=== PATIENT | male | born 1990 | race Caucasian/White ===

== ENCOUNTER 2016-11-27 16:21 | Inpatient (IN) | payer OTHER ==
[~2016-11-27] VITALS: Ht 165.1 cm; Wt 71.7 kg
[2016-11-27] MEDS ORDERED: diphenhydrAMINE 50 MG CAPSULE PO PRN (23:15)
[2016-11-27] MEDS ORDERED: MAGNESIUM HYDROXIDE 30 ML LIQUID UDC PO PRN (23:15)
[2016-11-27] MEDS ORDERED: BUPRENORPHINE HCL 2 MG TAB.SUBL SL PRN (23:15)
[2016-11-27] MEDS ORDERED: HYDROXYZINE PAMOATE 25 MG CAPSULE PO PRN (23:15)
[2016-11-27] MEDS ORDERED: METHOCARBAMOL 750 MG TABLET PO PRN (23:15)
[2016-11-27] MEDS ORDERED: MAG HYDROX/AL HYDROX/SIMETH 30 ML LIQUID UDC PO PRN (23:15)
[2016-11-27] MEDS ORDERED: IBUPROFEN 600 MG TABLET PO PRN (23:15)
[2016-11-27] MEDS ORDERED: ACETAMINOPHEN 325 MG TABLET PO PRN (23:15)
[2016-11-27] MEDS ORDERED: LOPERAMIDE HCL 2 MG CAPSULE PO PRN ×2 (23:15)
[2016-11-27] MEDS ORDERED: ONDANSETRON 4 MG/2 ML VIAL IM PRN (23:15)
[2016-11-27] MEDS ORDERED: ONDANSETRON ODT 4 MG TAB.RAPDIS SL PRN (23:15)
[2016-11-27] MEDS ORDERED: CLONIDINE HCL 0.1 MG TABLET PO PRN (23:15)
[2016-11-27] MEDS ORDERED: MIRALAX 17 GM POWD.PACK PO PRN (23:15)
[2016-11-27] MEDS ORDERED: DICYCLOMINE HCL 20 MG TABLET PO PRN (23:15)
[2016-11-28] VITALS: BP 128/91
--- NOTE | 2016-11-28 00:10 | NUR ---
ADMISSION Patient is a 26-year old, male, admitted and escorted by [facility] at 2355 to unit. Patient lives in a house with and kids in [place]. Skin check done, no open skin noted. No edema noted. Pt is ambulatory with steady gait. Pt stands 5'5" and weighs 158 pounds per standing scale. Vital signs are as follows: BP-128/91, T-98.1, P-77, RR-18 and SPO2 on RA=98%. Patient is AAOx4 and with no anxiety noted at this time. Lung sounds clear bilaterally upon auscultation. No cough noted and bowel sounds are present on all quadrants. PERRLA and pupils are 2 mm upon visual check. Pt reports No Known Allergies, on Regular Kosher Diet and is Full Code. Pt denies any seizure history. Per pt, withdrawal symptoms are hot flushes, sweats, chills, goosebumps, fatigue and insomnia. Substance history as follows: 1) Roxycodone: Per pt, started at age 15 and for the past 6 weeks was using 100 to 150 mgs daily via snorting. Last use was 11/27/2016 at 1800, 150 mg total for the past 24 hours. 2) Cannabis: Per patient, for the past 1 year, he smoked only for 5 times and the 4 times, he smoked for the past 3 weeks. Last smoked was 11/25/2046 and per pt he only smoked 2 hits. Patient verbalized the he does not drink alcohol. Patient reported no medical history. Per patient, Psychologist is Kenn Panchal and PCP is Dr. Xavier Martins. No Psychiatrist. Home medications mentioned were reconciled. No treatment history. Per patient, this is his first time in detox. Patient reports smoking cigarettes, specifically [place] lights, about 1 pack daily. Oriented patient to room and instructed with the use of the call light, placed within reach. Fall, universal, seizure and safety precautions implemented. Kept patient warm, dry and comfortable. No c/o significant pain at this time All needs met. Information relayed to Dr. Craig. Patient refused Pneumonia vaccine despite explanation of risks and benefits. Out of season for Flu vaccine. COWS=1. Will continue to monitor.
--- NOTE | 2016-11-28 00:30 | NUR ---
RN note Adderall Home Med Pt informed taking Adderall 30 mg PO BID "only when I needs to focus at work." Pt denies being diagnosed with ADHD.
[2016-11-28 01:07] LABS: *AMPHETAMINE, URINE POSITIVE (NEGATIVE); *BARBITURATE, URINE NEGATIVE (NEGATIVE); *CANNABINOID, URINE POSITIVE (NEGATIVE); *COCCAINE, URINE NEGATIVE (NEGATIVE); *OPIATE, URINE POSITIVE (NEGATIVE); *PHENCYCLIDINE SCREEN,URINE NEGATIVE (NEGATIVE)
[2016-11-28 01:59] LABS: ETHANOL < 3 MG/DL (0-0)
[2016-11-28 02:02] LABS: BASOPHILS % (AUTO) 0.5 % (0.0-2.0); EOSINOPHILS # (AUTO) 0.2 K/uL (0.0-0.7); EOSINOPHILS % (AUTO) 2.4 % (0.0-7.0); HEMATOCRIT 41.1 % (40.0-50.0); HEMOGLOBIN 14.5 g/dL (14.0-18.0); LYMPHOCYTES # (AUTO) 3.5 K/uL (0.8-4.8); LYMPHOCYTES % (AUTO) 44.8 % (20.5-51.5); MEAN CORPUSCULAR HEMOGLOBIN 29.8 uug (27.0-31.0); MEAN CORPUSCULAR HGB CONC 35 g/dL (32.0-37.0); MEAN CORPUSCULAR VOLUME 84.3 fL (82.0-92.0); MONOCYTES # (AUTO) 0.5 K/uL (0.1-1.30); NEUTROPHILS # (AUTO) 3.6 K/uL (1.8-8.9); NEUTROPHILS % (AUTO) 46.3 % (38.5-71.5); PLATELET COUNT (AUTO) 222 K/uL (150-450); RED BLOOD CELL COUNT(AUTO) 4.88 MIL/uL (4.70-6.10); RED CELL DISTRIBUTION WIDTH 11.4 % (11.5-14.5); WHITE BLOOD COUNT (AUTO) 7.8 K/uL (4.0-11.2)
[2016-11-28 02:04] LABS: ALANINE AMINOTRANSFERASE 29 U/L (16-63); ALBUMIN 3.6 g/dL (3.4-5.0); ALKALINE PHOSPHATASE 77 U/L (50-136); ASPARTATE AMINOTRANSFERASE 18 U/L (15-37); BILIRUBIN,TOTAL 0.4 mg/dL (0.2-1.0); CALCIUM 8.7 mg/dL (8.5-10.1); CARBON DIOXIDE 29 mmol/L (21-32); CHLORIDE 103 mmol/L (98-107); GFR 60 mL/min (>60); GLUCOSE 124 mg/dL (74-106); POTASSIUM 3.3 mmol/L (3.5-5.1); SODIUM SERUM 142 mmol/L (136-145); TOTAL PROTEIN, SERUM 6.8 g/dL (6.4-8.2); UREA NITROGEN, BLOOD 12 mg/dL (7-18)
[2016-11-28 02:11] LABS: CREATININE 1.4 mg/dL (0.6-1.3)
[2016-11-28 02:13] LABS: HIV-1 p24 ANTIGEN NON REACTIVE (NONREACTIVE); HIV-1/2 ANTIBODY NON REACTIVE (NONREACTIVE)
[2016-11-28 02:15] LABS: THYROID STIMULATING HORMONE 2.836 mIU/mL (0.358-3.740)
[2016-11-28] MEDS ORDERED: AMPH30TA3 PO (02:19)
[2016-11-28 04:00] VITALS: BP 123/82
--- NOTE | 2016-11-28 07:10 | NUR ---
Start of Shift Report from the night nurse: Pt is 24 y/o male here for Opiate dependence r/t Heroin 1g IV/d x 10 days; 4 day Subutex taper ordered. Pt is a full code, regular diet, allergic to sulfa, fall precautions ordered. HHx: No seizures, smoker, multiple relapses. V/S stable. Skin is intact. No new labs, recommendations or endorsements from the night nurse. Last COWS 3. Pt is in room asleep. Will cont. to monitor the pt. Addendum: 11/28/16 at 1241 by IGOR SALAZAR RN WRONG PATIENT
--- NOTE | 2016-11-28 07:25 | NUR ---
End of Shift Patient is a 26-year old, male, admitted for Opiate Dependence. No medical history and no history of seizure per pt. Pt reports No Known Allergies, on Regular Kosher Diet and is Full Code. Per pt, he uses Roxycodone via snorting 100 to 150 mg daily for the past 6 weeks prior to admission. Patient is AAOx4 and with no anxiety noted at this time. Pt is ambulatory with steady gait and with no skin issues. No apparent withdrawal symptoms noted at this time. Fall, universal, seizure and safety prec in place. Call light within reach. Kept pt warm, dry and comfortable. Last COWS=1, slept for 4 hours. Endorsed to AM shift nurse for continuity of care.
[2016-11-28 08:00] VITALS: BP 107/77
[2016-11-28] MEDS ORDERED: TUBERCULIN,PURIF.PROT.DERIV. 5 TU/0.1 ML TEST ID ONE (09:00)
[2016-11-28] MEDS ORDERED: POTASSIUM CHLORIDE 20 MEQ TAB.PRT.SR PO ONE (09:00)
[2016-11-28] MEDS: MULTIVITAMINS,THERAPEUTIC TABLET PO SCH (10:46)
--- NOTE | 2016-11-28 11:30 | NUR ---
New Orders & PPD Test New orders for 11/29/16: Chem 10, Hgb A1C, and to start 4 day Subutex taper. Late 0900H medications and PPD test given late per pt's request. PPD test done on Left FA.
[2016-11-28 12:00] VITALS: BP 134/89
--- NOTE | 2016-11-28 12:41 | NUR ---
Start of Shift Report from the night nurse: Pt is a 26 y/o male here for Opiate dependence r/t Roxicodone of 100-150mg/d and Cannabis r/t smoked 5 time in the last 3 weeks; PRN Subutex to be given w/n parameters . Pt is a full code, NKA, Regular/Kosher diet, Fall precautions ordered. HHx: Smoker, and no existing medication condition. V/S stable. Skin is intact. New results for K+ lab 3.3 and to give the K-Dur 40mEq during my shift. Night nurse states the UDS is positive for Amphetamines r/t pt takes Adderall for his anxiety on the job PRN and only occasionally. Last COWS 1. Pt is asleep in room. Will cont. to monitor the pt.
[2016-11-28] MEDS ORDERED: BUPRENORPHINE HCL 2 MG TAB.SUBL SL PRN (13:00)
[2016-11-28 16:00] VITALS: BP 128/86
--- NOTE | 2016-11-28 19:20 | NUR ---
End of Shift Report to the night nurse: Pt is a 26 y/o male here for Opiate dependence r/t Roxicodone of 100-150mg/d and Cannabis r/t smoked 5 time in the last 3 weeks; PRN Subutex to be given w/n parameters . Pt is a full code, NKA, Regular/Kosher diet, Fall precautions ordered. HHx: Smoker and no existing medication condition. V/S stable. Skin is intact. No PRN given during my shift and last COWS 2. Pt has new orders to start the 5 day Subutex taper tomorrow since the COWS is low during my shift. New orders for Chem 10, HgbAc1 11/29/16. No hallucinations, delusions or suicidal ideations present. Pt attended the group therapy and activities during my shift.
[2016-11-28 20:00] VITALS: BP 114/65
--- NOTE | 2016-11-28 20:00 | NUR ---
Start of shift note: Patient is a 26 y/o male admitted on 11/27/16 for Opiate dependence. Patient reported that he uses Roxycodone 100-150mg daily for 6 months. Patient with no past medical history. Patient is on a regular diet with no known food and drug allergies. Full Code status. Fall precautions noted. Patient has not started his taper yet. Last COWS is 2. No PRN medications given during day shift. Potassium of 3.3 was replaced with KCL 40meQ during day shift. Patient remained stable. Pt is alert & oriented x4. No shortness of breath noted. Respiration even & unlabored. Abdomen soft & non-distended. Bowel sounds active in all four quadrants. No nausea/vomiting noted. Patient denies body aches, stomach cramps. Patient complains of slight chills. No bilateral hand tremors noted. Patient denies SI/HI. Safety precautions are in place. Bed locked in lowest position. Both side rails up. Call light within pts reach. Will continue to monitor patient.
[2016-11-28] MEDS ORDERED: TRAZODONE 50 MG TABLET PO ONE (22:00)
--- NOTE | 2016-11-28 22:39 | NUR ---
Communication & one time Trazodone order Patient complains of insomnia and difficulty falling asleep. Dr. Craig notified with new orders for a one Trazodone 50mg PO. ORders noted. Trazodone 50mg administered as ordered. Pt lying in bed with no s/s of distress. Will continue to monitor patient.
[2016-11-28] MEDS ORDERED: TRAZODONE 50 MG TABLET ONE (22:40)
--- NOTE | 2016-11-28 23:39 | NUR ---
Reassessment Patient asleep in bed and appears comfortable. No shortness of breath noted. Respiration even & unlabored. Safety precautions are in place. Will continue to monitor.
[2016-11-29] VITALS: BP 98/62
--- NOTE | 2016-11-29 04:00 | NUR ---
VITALS/COWS DEFERRED Patient asleep in bed and appears comfortable. COWS deferred as ordered. No shortness of breath noted. Respiration even & unlabored. Safety precautions are in place. Will continue to monitor.
--- NOTE | 2016-11-29 07:06 | NUR ---
END OF SHIFT NOTE: Pt has an uneventful night. Pt still has no taper. COWS 1 noted during assessment. Pt was having trouble sleeping last night and Dr. Craig was notified with orders to give a one time dose of Trazodone 50mg and was effecitve. Pt remained stable and vitals remains WNL. Pt slept for a total of 8 hours. Pt consumed 1000ml of fluids. Voided 2x with no bowel movement. All needs attended & met. Safety precautions are in place. Will endorse pt to day shift nurse.
--- NOTE | 2016-11-29 07:10 | NUR ---
Start of Shift Note: Received patient in his room. Awake, alert and verbally responsive. Oriented x 4. Respirations even and unlabored. No SOB noted. Skin warm and dry to touch. Abdomen soft and non-distended. BS (+) in all 4 quadrants. No complains of N/V/D or constipation noted. No complains of abdominal discomfort noted. Bladder non-distended. No complains of dysuria. Voids independently with steady gait. Patient is a 26 year old male admitted for opiate dependence who was placed on PRNs only at this time. COWS monitored closely. NKA. FULL CODE. Regular diet. On fall and seizure precautions. Patient denies any past medical hx noted. Educated patient on his current plan of care for the day and his medication regimen. Encouraged oral fluid intake and encouraged group participation to learn new skills to prevent relapse. Will continue to monitor closely.
[2016-11-29 08:00] VITALS: BP_SYST 100; BP_SYST 125; BP_DIAS 62; BP_DIAS 86
[2016-11-29 08:21] LABS: CALCIUM 8.9 mg/dL (8.5-10.1); MAGNESIUM 2.1 mg/dL (1.8-2.4); POTASSIUM 3.9 mmol/L (3.5-5.1)
[2016-11-29] MEDS: MULTIVITAMINS,THERAPEUTIC TABLET PO SCH (08:29)
--- NOTE | 2016-11-29 08:31 | NUR ---
Subutex at 0900 not administered: Patient refused Subutex at 0900. COWS 0. Denies any anxiety, stomach cramps, chills, hot flashes or N/V. No tremors noted. Skin is smooth.
[2016-11-29] MEDS ORDERED: BUPRENORPHINE HCL 2 MG TAB.SUBL SL SCH (09:00)
[2016-11-29] MEDS ORDERED: 4 DAY TAPER BUPRENORPHINE -SERENITY PROTOCOL SL PRN (09:00)
--- NOTE | 2016-11-29 10:31 | NUR ---
MD Communication: Dr. Craig made aware of patient's COWS score and refusal of Subutex. Will continue to monitor.
--- NOTE | 2016-11-29 11:36 | NUR ---
4-day Subutex taper DC'd: Patient's taper was discontinued per MD Craig due to low COWS score. Patient was informed and verbalized understanding.
[2016-11-29 12:00] VITALS: BP 112/66
[2016-11-29 14:13] LABS: HCV AB <0.1 s/co ratio (0.0-0.9); HEPATITIS B CORE AB, IgM Negative (Negative); HEPATITIS B SURFACE AG Negative (Negative)
--- NOTE | 2016-11-29 15:09 | NUR ---
Psych Communication: Notified Dr. Velazquez of patient's request for sleeping aid. Patient will be started on Trazodone. Education provided. Patient verbalized understanding. Orders received and noted.
[2016-11-29 16:00] VITALS: BP 120/87
[2016-11-29 16:04] LABS: *AMPHETAMINE, URINE POSITIVE (NEGATIVE); *BARBITURATE, URINE NEGATIVE (NEGATIVE); *CANNABINOID, URINE POSITIVE (NEGATIVE); *COCCAINE, URINE NEGATIVE (NEGATIVE); *OPIATE, URINE NEGATIVE (NEGATIVE); *PHENCYCLIDINE SCREEN,URINE NEGATIVE (NEGATIVE)
--- NOTE | 2016-11-29 18:36 | NUR ---
End of Shift Notes: Patient is a 26 year old male admitted for opiate dependence. He was originally placed on a 4-day Subutex taper but patient refused to take the scheduled taper. He denies any past medical hx. Prior to admission, patient was using 100 to 150 mg of Oxycodone for the past 6 weeks and occasional marijuana use. Withdrawal symptoms were closely monitored. COWS 0, VS monitored q 4 hours. No significant abnormalities noted. Compliant with care and treatment. UDS in and resulted. Patient will be discharging to [facility] tomorrow AM. Call light kept in reach. Will continue to monitor closely.
--- NOTE | 2016-11-29 19:00 | NUR ---
Start of Shift Note: Patient is a 26 y/o male admitted on 11/27/16 for Opiate dependence. Patient reported that he uses Roxycodone 100-150mg daily for 6 months. Patient denies any past medical history. Patient is on a regular diet with no known food and drug allergies. Full Code status. Fall precautions noted. Patient has no taper and she is scheduled to be discharge tomorrow. Urine drug screen collected and resulted. Last COWS is 0. No PRN medications given during day shift. Patient remained stable. Patient is alert & oriented x4. No shortness of breath noted. Respiration even & unlabored. Abdomen soft & non-distended. Bowel sounds active in all four quadrants. No nausea/vomiting noted. Patient lying in bed and appears comfortabl. Patient denies pain/discomfort. No bilateral hand tremors noted. Patient denies any anxiety. Safety precautions are in place. Bed locked in lowest position. Both side rails up. Call light within pts reach. Will continue to monitor patient.
[2016-11-29 20:00] VITALS: BP 126/83
[2016-11-29] MEDS ORDERED: TRAZODONE 50 MG TABLET PO SCH (21:00)
[2016-11-29] MEDS ORDERED: HYDR-3895 PO (22:11)
[2016-11-29] MEDS ORDERED: Ibuprofen PO (22:11)
[2016-11-29] MEDS ORDERED: DICY20TA28 PO (22:11)
[2016-11-29] MEDS ORDERED: TRAZ-144 PO (22:11)
[2016-11-30] VITALS: BP 109/59
--- NOTE | 2016-11-30 04:00 | NUR ---
VITALS/COWS DEFERRED Patient refused vitals at this time. Patient asleep in bed and appears comfortable. COWS deferred as ordered. No shortness of breath noted. Respiration even & unlabored. Safety precautions are in place. Will continue to monitor.
--- NOTE | 2016-11-30 07:11 | NUR ---
END OF SHIFT NOTE: Pt had an uneventful night. Pt is scheduled to be discharge today. Urine drug screen collected and resulted. Last COWS 0 noted. Pt denies any symptoms of withdrawal. Pt was not given any PRN medications during my shift. Pt remained compliant with medications. Pt remained stable and vitals remains WNL. Pt slept for a total of 7 hours. Pt consumed 641 ml of fluids. Voided 1x with no bowel movement. All needs attended & met. Safety precautions are in place. Will endorse pt to day shift nurse.
[2016-11-30 08:00] VITALS: BP 122/87
--- NOTE | 2016-11-30 08:00 | NUR ---
START OF SHIFT Pt 26 y/o male admitted for opioid dependence. Pt received in room in bed watching television. Pt alert and oriented to name, place, and time. Perrla. Skin warm and dry to touch. Respirations even and unlabored. It was reported that pt slept for 7 hours last night. Pt is scheduled to be discharged today. Pt is excited about being discharged. Bed on lowest position with side rails x2 up for safety. Call light within reach. No distress noted at this time.
[2016-11-30] MEDS: MULTIVITAMINS,THERAPEUTIC TABLET PO SCH (08:24)
[2016-11-30] MEDS ORDERED: BUPRENORPHINE HCL 2 MG TAB.SUBL SL SCH ×2 (09:00→15:00)
--- NOTE | 2016-11-30 11:25 | NUR ---
DISCHARGE Pt 26 y/o male admitted for opioid dependence. Pt discharged to [facility] via private transport. Pt alert and oriented to name, place, and time. Perrla. Skin warm and dry to touch. Respirations even and unlabored. Pt excited about discharge. All discharge paperwork , prescriptions, and belongings were packed in bag to be given to pt. No belongings in cabinet or cassette noted. No distress noted. VS wnl.
[2016-12-01] MEDS ORDERED: BUPRENORPHINE HCL 2 MG TAB.SUBL SL SCH (09:00)
[2016-12-02] MEDS ORDERED: BUPRENORPHINE HCL 2 MG TAB.SUBL SL SCH (09:00)
== END 2016-11-30 11:23 | disposition other institution (70) | DRG 895 ==
LOC: SRC 23:04
PROVIDERS: ADMIT Internal Medicine; ATTEND Internal Medicine
DX: F11.23 Opioid dependence with withdrawal (principal); N17.9 Acute kidney failure, unspecified; E87.6 Hypokalemia; F17.210 Nicotine dependence, cigarettes, uncomplicated; F15.188 Other stimulant abuse with other stimulant-induced disorder; F41.9 Anxiety disorder, unspecified; Z82.49 Family history of ischemic heart disease and other diseases of the circulatory system; R73.9 Hyperglycemia, unspecified; G47.00 Insomnia, unspecified; F12.10 Cannabis abuse, uncomplicated; F98.8 Other specified behavioral and emotional disorders with onset usually occurring in childhood and adolescence
CPT/HCPCS: 36415; 70030-TC; 80307; 80324; 80349; 80361; 83735; 84100; 84443; 85025; 86580; 86592; 86705; 86803; 87340; 87806; A4663; G6040-TC